=== PATIENT | female | born 1995 | race Caucasian/White ===

== ENCOUNTER 2021-12-03 12:23 | Emergency (ER) | payer OTHER ==
[~2021-12-03] VITALS: Ht 170.2 cm; Wt 110.7 kg
[2021-12-03 12:26] VITALS: BP 140/98
[2021-12-03 12:57] LABS: BASOPHILS % (AUTO) 0.5 % (0.0-2.0); EOSINOPHILS # (AUTO) 0.1 K/uL (0-0.4); EOSINOPHILS % (AUTO) 0.7 % (0.0-4.0); HEMATOCRIT 43.6 % (36-48); HEMOGLOBIN 14.7 g/dL (12.0-16.0); LYMPHOCYTES # (AUTO) 2.2 K/uL (2.5-16.5); LYMPHOCYTES % (AUTO) 27.2 % (20.5-51.1); MEAN CORPUSCULAR HEMOGLOBIN 30 pg (27-31); MEAN CORPUSCULAR HGB CONC 34 g/dL (33-37); MEAN CORPUSCULAR VOLUME 89.6 fL (80-94); MONOCYTES # (AUTO) 0.5 K/uL (0.8-1.0); MONOCYTES % (AUTO) 6.1 % (1.7-9.3); NEUTROPHILS # (AUTO) 5.3 K/uL (1.8-7.7); NEUTROPHILS % (AUTO) 65.5 % (42.2-75.2); PLATELET COUNT (AUTO) 362 K/uL (140-450); RED BLOOD CELL COUNT(AUTO) 4.86 MIL/uL (4.20-5.40)
--- NOTE | 2021-12-03 13:05 | NUR ---
26/F PRESENTS TO ED WITH C/O CHEST PAIN X4 DAYS, DENIES RECENT INJURY OR TRAUMA OR RECENT HEAVY LIFTING. PATIENT REPORTS HX OF ANXIETY AND IS UNSURE IF SYMPTOMS CAN BE RELATED, REPORTS TAKING ANXIETY SOOTHING OTC MEDICATION BUT REPORTS NO RELIEF IN ANXIETY OR CP. PATIENT DENIES N/V/D, SOB.
[2021-12-03 13:20] LABS: ANION GAP 14.4 (8-16); ASPARTATE AMINOTRANSFERASE 12 U/L (15-37); CARBON DIOXIDE 24.8 mmol/L (21-32); CHLORIDE 104 mmol/L (98-107); CREATININE 0.8 mg/dL (0.6-1.3); GFR ARICAN-AMERICAN 112 mL/min (>90); GLUCOSE 114 mg/dL (74-106); POTASSIUM 3.2 mmol/L (3.5-5.1); SODIUM SERUM 140 mmol/L (136-145); TOTAL BILIRUBIN 0.4 mg/dL (0.0-1.0); UREA NITROGEN, BLOOD 6 mg/dL (7-18)
[2021-12-03] MEDS ORDERED: ATA25 PO (13:54)
[2021-12-03] MEDS ORDERED: KETOROLAC 30 MG/ML VIAL IM ONE (13:55)
--- NOTE | 2021-12-03 14:36 | NUR ---
Patient discharged with v/s stable. Written and verbal after care instructions ABOUT ATARAX HCL given and explained. Patient verbalized understanding. Ambulatory with steady gait. All questions addressed prior to discharge. Advised to follow up with PMD.
== END 2021-12-03 14:36 | disposition home or self-care (01) ==
LOC: MED 12:23
DX: F41.9 Anxiety disorder, unspecified (principal); R07.9 Chest pain, unspecified; Z79.899 Other long term (current) drug therapy
CPT/HCPCS: 36415; 71046; 80053; 84484; 85025; 85379; 93005; 96372; 99285; J1885

== ENCOUNTER 2022-01-09 22:34 | Emergency (ER) | payer OTHER ==
[~2022-01-09] VITALS: Ht 170.2 cm; Wt 108.9 kg
[~2022-01-09 22:34] MED LIST: ATA25 PO
[2022-01-09 22:37] VITALS: BP 147/81
--- NOTE | 2022-01-09 22:42 | NUR ---
PT TAKEN TO BED 10
--- NOTE | 2022-01-09 22:52 | NUR ---
26 YO F BIB SELF WITH C/C OF 7/10 LEFT FOOT PAIN S/P FALL [id number] AGO. PT STATES SHE STEPPED IN A HOLE AND ROLLED HER ANKLE. SLIGHT DISCOLORATION STARTING AT LATERAL PORTION OF LEFT FOOT. INCREASED PAIN WITH MOVEMENT. PT DENIES HITTING HEAD UPON FALL. NO LOC. DENIES TAKING MEDS FOR PAIN. DENIES HX, RX AND ALLERGIES
--- NOTE | 2022-01-09 23:05 | NUR ---
RAD AT BEDSIDE
[2022-01-09] MEDS ORDERED: IBUPROFEN 800 MG TAB PO ONE (23:35)
[2022-01-09] MEDS ORDERED: IBUPROFEN 800 MG TAB ONE (23:35)
--- NOTE | 2022-01-10 00:02 | NUR ---
pt given warm blanket and food
--- NOTE | 2022-01-10 00:35 | NUR ---
Dr. Parada examining patient.
--- NOTE | 2022-01-10 00:42 | NUR ---
pt ambulated to and back to bed.
[2022-01-10] MEDS ORDERED: IBUP-2213 PO (02:07)
[2022-01-10 02:30] VITALS: BP 142/79
--- NOTE | 2022-01-10 02:30 | NUR ---
POSTERIOR ANKLE SPLINT APPLIED TO PT, +CMS BEFORE AND AFTER APPLICATION, PT TOLERATED THE PROCEDURE
--- NOTE | 2022-01-10 02:30 | NUR ---
Patient discharged with v/s stable. Written and verbal after care instructions given and explained. Patient verbalized understanding. Ambulatory with steady gait. All questions addressed prior to discharge. Advised to follow up with PMD.
== END 2022-01-10 02:30 | disposition home or self-care (01) ==
LOC: MED 22:34
DX: S93.602A Unspecified sprain of left foot, initial encounter (principal); R03.0 Elevated blood-pressure reading, without diagnosis of hypertension; Z79.1 Long term (current) use of non-steroidal anti-inflammatories (NSAID); Z79.899 Other long term (current) drug therapy; W17.2XXA Fall into hole, initial encounter; Y92.89 Other specified places as the place of occurrence of the external cause; Y93.01 Activity, walking, marching and hiking; Y99.8 Other external cause status
CPT/HCPCS: 29515; 73610; 73630; 99284; Q0092

== ENCOUNTER 2022-04-23 10:35 | Emergency (ER) | payer OTHER ==
[~2022-04-23] VITALS: Ht 170.2 cm; Wt 108.9 kg
[~2022-04-23 10:35] MED LIST changes: +IBUP-2213 PO
[2022-04-23 10:39] VITALS: BP 160/100
[2022-04-23] MEDS ORDERED: NACL 0.9% 1,000 ML IV ONE (11:15)
[2022-04-23] MEDS ORDERED: KETOROLAC 30 MG/ML VIAL IVP ONE (11:15)
--- NOTE | 2022-04-23 11:36 | NUR ---
IV started blood work obtained, handed blood samples to [facility].
[2022-04-23 11:49] LABS: BASOPHILS % (AUTO) 0.6 % (0.0-2.0); EOSINOPHILS # (AUTO) 0.2 K/uL (0-0.4); HEMATOCRIT 38.7 % (36-48); HEMOGLOBIN 13.1 g/dL (12.0-16.0); LYMPHOCYTES # (AUTO) 2.3 K/uL (2.5-16.5); LYMPHOCYTES % (AUTO) 28.5 % (20.5-51.1); MEAN CORPUSCULAR HEMOGLOBIN 31 pg (27-31); MEAN CORPUSCULAR HGB CONC 34 g/dL (33-37); MEAN CORPUSCULAR VOLUME 90.5 fL (80-94); MONOCYTES # (AUTO) 0.5 K/uL (0.8-1.0); MONOCYTES % (AUTO) 6.1 % (1.7-9.3); NEUTROPHILS % (AUTO) 62.8 % (42.2-75.2); PLATELET COUNT (AUTO) 328 K/uL (140-450); RED BLOOD CELL COUNT(AUTO) 4.28 MIL/uL (4.20-5.40); RED CELL DISTRIBUTION WIDTH 12.8 % (11.6-13.7)
[2022-04-23 12:33] LABS: ALBUMIN 3.8 g/dL (3.4-5.0); ANION GAP 11.6 (8-16); CARBON DIOXIDE 27.4 mmol/L (21-32); CREATININE 0.7 mg/dL (0.6-1.3); TOTAL BILIRUBIN 0.3 mg/dL (0.0-1.0)
[2022-04-23 12:58] LABS: APPEARANCE,URINE CLEAR (CLEAR); BILIRUBIN,URINE NEGATIVE (NEGATIVE); BLOOD, URINE 3+ (NEGATIVE); COLOR,URINE YELLOW (YELLOW); LEUKOCYTE ESTERASE ,URINE NEGATIVE (NEGATIVE); NITRITE, URINE NEGATIVE (NEGATIVE); UGLUCOSE NEGATIVE (NEGATIVE)
[2022-04-23 13:13] LABS: RBC,URINE 20-50 /HPF (0-5); WBC,URINE 0-5 /HPF (0-5)
[2022-04-23] MEDS ORDERED: ACET-8386 PO (13:31)
[2022-04-23] MEDS ORDERED: IBUP-2213 PO (13:31)
[2022-04-23] MEDS ORDERED: TAMS0.4C96 PO (13:31)
[2022-04-23 13:53] VITALS: BP 119/66
--- NOTE | 2022-04-23 13:53 | NUR ---
Patient discharged with v/s stable. Written and verbal after care instructions given. Patient alert, oriented and verbalized understanding of instructions. Ambulatory with steady gait. All questions addressed prior to discharge. ID band removed. Patient advised to follow up with PMD. Rx of Hydrocodone-Acetaminophen, Ibuprofen and Tamulosin given. Opportunity to ask questions provided and answered.
--- NOTE | 2022-04-23 13:58 | NUR ---
The patient's care was reviewed and supervised by ED Agency Nurse 9, RN, RN.
== END 2022-04-23 13:53 | disposition home or self-care (01) ==
LOC: MED 10:35
DX: R31.9 Hematuria, unspecified (principal)
CPT/HCPCS: 36415; 76770; 80053; 81001; 81025; 83690; 85025; 96361; 96374; 99284; J1885

== ENCOUNTER 2022-12-01 19:40 | Emergency (ER) | payer OTHER ==
[~2022-12-01] VITALS: Ht 170.2 cm; Wt 115.7 kg
[~2022-12-01 19:40] MED LIST changes: +ACET-8905 PO; +TAMS0.4C96 PO
[2022-12-01 19:55] VITALS: BP 116/78; PULSE 87; RESP 18; TEMP 97.4; O2SAT 97
--- NOTE | 2022-12-01 20:05 | NUR ---
Patient ambulated to bed 12.
[2022-12-01 20:12] VITALS: TEMP 97.4
--- NOTE | 2022-12-01 20:31 | NUR ---
Patient is a 27/F known hyperopic who came in due to right eye pain since this AM described as burning with foreign body sensation, redness, excessive tearing, blurry vision, itchiness and headache, 5/10. Patient applied OTC lubricant eye drops. Vision acuity: Left 20/30 Right 20/30 Both 20/30 PMHx: Anxiety NKA
[2022-12-01] MEDS ORDERED: ERYT5OIN51 OP (20:40)
[2022-12-01 20:55] VITALS: BP 105/69; PULSE 78; RESP 16; O2SAT 99
--- NOTE | 2022-12-01 20:55 | NUR ---
Patient discharged with v/s stable. Written and verbal after care instructions given and explained. Patient alert, oriented and verbalized understanding of instructions. Ambulatory with steady gait. All questions addressed prior to discharge. ID band removed. Patient advised to follow up with PMD. Rx of Erythromycin given. Patient educated on indication of medication including possible reaction and side effects. Opportunity to ask questions provided and answered.
== END 2022-12-01 20:55 | disposition home or self-care (01) ==
LOC: MED 19:40
DX: H10.89 Other conjunctivitis (principal); B96.89 Other specified bacterial agents as the cause of diseases classified elsewhere; Z79.899 Other long term (current) drug therapy
CPT/HCPCS: 99283

== ENCOUNTER 2023-07-06 08:36 | Emergency (ER) | payer OTHER ==
[~2023-07-06] VITALS: Ht 172.7 cm; Wt 65.8 kg
[~2023-07-06 08:36] MED LIST changes: +ERYT5OIN51 OP
[2023-07-06] MEDS ORDERED: AMOX1TAB8 PO (08:43)
[2023-07-06 08:45] VITALS: BP 111/64; PULSE 67; RESP 18; TEMP 97.5; O2SAT 98
== END 2023-07-06 08:48 | disposition home or self-care (01) ==
LOC: MED 08:36
DX: H68.001 Unspecified Eustachian salpingitis, right ear (principal); Z79.899 Other long term (current) drug therapy
CPT/HCPCS: 99283